=== PATIENT | female | born 1975 | race Native Hawaiian/Other Pacific Islander ===

== ENCOUNTER 2020-05-07 10:34 | Emergency (ER) | payer BC ==
[~2020-05-07] VITALS: Ht 162.6 cm; Wt 112.5 kg
[2020-05-07 10:43] VITALS: TEMP 98.3
[2020-05-07 11:34] LABS: PLATELET COUNT 209 K/uL (152-353)
[2020-05-07 11:43] LABS: PARTIAL THROMBOPLASTIN TIME 24.5 SECONDS (24.5-33.6)
[2020-05-07 13:37] VITALS: BP 155/74
== END 2020-05-07 13:37 | disposition home or self-care (01) ==
LOC: ED 10:34
PROVIDERS: Hospitalist
DX: O20.0 Threatened abortion (principal); Z3A.01 Less than 8 weeks gestation of pregnancy
CPT/HCPCS: 80048; 81000; 84702; 85027; 85610; 85730; 96360; 96361; 99284